=== PATIENT | female | born 1980 | race Caucasian/White ===

== ENCOUNTER 2017-04-25 16:50 | Emergency (ER) | payer MEDICAID ==
[2017-04-25] MEDS: ACETAMINOPHEN 325 MG TAB PO (19:42)
== END 2017-04-26 01:24 | disposition home or self-care (01) ==
LOC: FTE 04-26 01:24
DX: O91.12 Abscess of breast associated with the puerperium (principal)
CPT/HCPCS: 76642; 99284-25